=== PATIENT | female | born 1980 | race American Indian/Alaskan Native ===

== ENCOUNTER 2017-06-23 13:53 | Inpatient (IN) | payer MEDICAID, OTHER ==
[2017-06-23] MEDS ORDERED: CARDIZEM IV ONE (15:22)
[2017-06-23] MEDS ORDERED: CARDIZEM/D5W 100MG/100ML 100 MG/100 ML BAG IV ONE (15:22)
[2017-06-23] MEDS ORDERED: SUBLIMAZE IV ONE (15:23)
[2017-06-23] MEDS ORDERED: NACL 0.9% 1000 ML 1,000 ML IV ONE (15:25)
--- NOTE | 2017-06-23 15:27 | Emergency Department Report ---
HPI - General Chief Complaint: Chest Pain Time Seen by Provider: 06/23/17 15:22 - HPI HPI: The patient is 37-year-old female who presents for evaluation of chest pain. The patient reports chest pain for the past 2 days, constant since onset, moderate severity, currently 5/10 in severity, pounding in quality, and exacerbated with exertion. She also reports associated palpitations, severe, also constant since onset, and mild shortness of breath with exertion. The patient denies fever, trauma to the chest, cough, syncope, hemoptysis, unilateral leg swelling, oral contraceptive use, recent immobilization, history of DVT or PE, recent cancer. ED Past Medical Hx - Past Medical History Hx Psychiatric Treatment: Yes Hx Asthma: Yes Additional medical history: schizophrenia, bipolar, depression - Surgical History Additional Surgical History: Tubal ligation 2004. - Social History Smoking Status: Never Smoker Substance Use Type: None - Medications Home Medications: Home Medications Medication Instructions Recorded Confirmed Last Taken Type Mirtazapine [Remeron] 15 mg PO QHS 06/23/17 06/23/17 Unknown History Olanzapine [Zyprexa] 5 mg PO DAILY 06/23/17 06/23/17 Unknown History Temazepam [Restoril] 15 mg PO QHS PRN 06/23/17 06/23/17 Unknown History ED Review of Systems ROS: Stated complaint: SOB/CP Other details as noted in HPI Constitutional: denies: fever ENT: denies: throat or neck pain Respiratory: denies: cough, shortness of breath Cardiovascular: reports: chest pain and palpitations Endocrine: denies unexplained weight loss or gain Gastrointestinal: denies: abdominal pain, nausea Genitourinary: denies: dysuria Musculoskeletal: denies: leg swelling Skin: denies: rash Neurological: denies: headache Hematological/Lymphatic: denies: easy bleeding or easy bruising Psych: denies sadness or hopelessness Physical Exam - Physical Exam Vital Signs: Vital Signs 06/23/17 06/23/17 06/23/17 14:33 14:37 14:38 Temperature 98 F 98.6 F Pulse Rate 156 H 157 H Respiratory 20 20 20 Rate Blood Pressure 106/54 Blood Pressure 106/54 [Right] O2 Sat by Pulse 100 100 100 Oximetry Physical Exam: General: well-nourished, well-developed, no acute distress Head: Normocephalic, atraumatic Eyes: normal sclera ENT: Mucous membranes are pale and dry Neck: No neck stiffness, no cervical adenopathy Respiratory: Breath sounds equal bilaterally, no wheezing, rales, or rhonchi Cardio: S1 and S2 present, no murmurs, rubs, gallops, capillary refill is delayed Abdomen: Normoactive bowel sounds, soft abdomen, no rigidity, no guarding or rebound tenderness Musc: No pitting edema Skin: No rash Neuro: no facial drooping, normal speech Psych: Normal affect ED Course Vital Signs 06/23/17 06/23/17 06/23/17 14:33 14:37 14:38 Temperature 98 F 98.6 F Pulse Rate 156 H 157 H Respiratory 20 20 20 Rate Blood Pressure 106/54 Blood Pressure 106/54 [Right] O2 Sat by Pulse 100 100 100 Oximetry ED Medical Decision Making - Lab Data Result diagrams: 06/23/17 15:30 06/23/17 15:30 - Medical Decision Making The patient was seen and examined by myself. The patient is placed on a air sampling and monitoring and continuous pulse ox. On initial evaluation, the patient was found to be in no distress. Evaluation orders were placed. EKGs is irregularly irregular narrow complex QRS rhythm with no P waves, consistent with atrial fibrillation with RVR, as heart rate is in the 130s-150s. The patient is given IV fentanyl for pain and IV Cardizem for treatment of Atrial fibrillation. The patient started on a Cardizem drip. Multiple bedside assessments were performed to assess patient's responsiveness to antiarrhythmics infusion. The on-call hospitalist service was contacted. They agreed to admit the patient for further treatment and close monitoring. The ED admit order was placed. The patient was admitted in guarded condition. Critical Care Time: Yes Critical care time in (mins) excluding proc time.: 35 Critical care attestation.: Due to the critical nature of this patients presentation, which necessitated multiple bedside assessments, manipulation and supportive measures to prevent further life threatening deterioration, I would like to bill for a total of 35 minutes of critical care time. This was exclusive of any separately billable procedures. Critical Care Time: 35 min ED Disposition Clinical Impression: Atrial fibrillation with rapid ventricular response, Acute chest pain Disposition: OP ADMIT IP TO THIS HOSP Is pt being admited?: Yes Does the pt Need Aspirin: Yes Condition: Critical Instructions: Chest Pain (ED) Time of Disposition: 15:26
[2017-06-23 16:05] LABS: Hematocrit 37.8 % (30.3-42.9); Hemoglobin 12.3 gm/dl (10.1-14.3); Mean Corpuscular HGB Conc 33 % (30-34); Mean Corpuscular Hemoglobin 26 pg (28-32); Mean Corpuscular Volume 81 fl (79-97); Platelet Count 224 K/mm3 (140-440); Red Blood Count 4.68 M/mm3 (3.65-5.03); Red Cell Distribution Width 13.3 % (13.2-15.2)
[2017-06-23 16:14] LABS: INR 0.94 (0.87-1.13)
[2017-06-23 16:15] LABS: Partial Thromboplastin Time 28.1 Sec. (24.2-36.6)
[2017-06-23 16:23] LABS: BUN/Creatinine Ratio 25; Blood Urea Nitrogen 10 mg/dL (7-17); Calcium 9.4 mg/dL (8.4-10.2); Hemolysis Index 0
[2017-06-23 16:27] LABS: Creatine Kinase MB < 1.0 ng/mL (0.0-4.0)
[2017-06-23 16:28] LABS: Free T4 (Free Thyroxine) 3.28 ng/dL (0.76-1.46)
[2017-06-23 16:48] LABS: Basophils % (Manual) 0 % (0.0-1.8); Eosinophils % (Manual) 0 % (0.0-4.3); Total Cells Counted 100
[2017-06-23 16:49] LABS: Platelet Estimate Consistent w Auto; RBC Morphology Normal
--- NOTE | 2017-06-23 17:11 | History and Physical Report ---
History of Present Illness Chief complaint: My heart is beating fast History of present illness: 37 YO Female with Asthma, Schizophrenia, Bipolar, Depression presents to ED for evaluation. The patient states that she has experienced chest palpitations for the past 2 days as well as chest discomfort. Pt states that she feels like her heart is beating really hard. Pt now denies chest pain. Pt states that symptoms worsen with exertion or excitement. Pt states that palpitations are severe, constant since onset, and associated with mild shortness of breath with exertion. The patient denies fever, chills, CP, Palpitations, trauma to the chest, cough, syncope, hemoptysis, unilateral leg swelling, oral contraceptive use, recent immobilization, history of DVT or PE, recent cancer, prolonged travel, unintentional weight loss or night sweats. Pt seen and evaluated in ED and found to have Atrial Fib with RVR as well as eletated T4 and decreased TSH suspected secondary to thyrotoxicosis. Pt initiated on cardizem drip, and admitted to ICU. Past History Past Medical History: other (Asthma, schizophrenia, bipolar, depression) Past Surgical History: Other (tubal ligation) Social history: single. denies: smoking, alcohol abuse, prescription drug abuse Family history: no significant family history (reviewed) Medications and Allergies Allergies Allergy/AdvReac Type Severity Reaction Status Date / Time No Known Allergies Allergy Verified 05/14/14 23:07 Home Medications Medication Instructions Recorded Confirmed Last Taken Type Mirtazapine [Remeron] 15 mg PO QHS 06/23/17 06/23/17 Unknown History Olanzapine [Zyprexa] 5 mg PO DAILY 06/23/17 06/23/17 Unknown History Hydroxyzine HCl 25 mg PO BID 06/24/17 06/24/17 06/23/17 History Active Meds: Active Medications Diltiazem HCl (Cardizem/D5w 100mg/100ml) 100 mg in 100 mls @ 5 mls/hr IV TITR ONE; 5 MG/HR PRN Reason: Protocol Stop: 06/24/17 11:21 Review of Systems Constitutional: no weight loss, no weight gain, no fever, no chills Ears, nose, mouth and throat: no ear pain, no ear discharge, no tinnitis, no decreased hearing, no nose pain Breasts: no change in shape, no swelling, no mass Cardiovascular: palpitations, rapid/irregular heart beat, shortness of breath, no chest pain Respiratory: no cough, no cough with sputum, no excessive sputum, no hemoptysis , no shortness of breath Gastrointestinal: no nausea, no vomiting, no diarrhea Genitourinary Female: no dysmenorrhea, no pelvic pain, no flank pain, no menorrhagia, no dysuria Rectal: no pain, no incontinence, no bleeding Musculoskeletal: no neck stiffness, no neck pain, no shooting arm pain, no arm numbness/tingling Integumentary: no pruritis, no redness, no sores, no wounds Neurological: no head injury, no transient paralysis, no paralysis, no weakness , no parathesias, no numbness, no tingling Psychiatric: anxiety, no memory loss, no change in sleep habits, no sleep disturbances, no insomnia, no hypersomnia Endocrine: palpatations, no cold intolerance, no heat intolerance, no polyphagia , no excessive thirst, no polydipsia, no polyuria, no nocturia, no thyroid mass Hematologic/Lymphatic: no easy bruising, no easy bleeding Allergic/Immunologic: no urticaria, no allergic rhinitis, no wheezing Exam - Constitutional Vitals: Temp Pulse Resp BP Pulse Ox 98.6 F 163 H 20 101/65 100 06/23/17 14:37 06/23/17 16:05 06/23/17 14:38 06/23/17 16:05 06/23/17 14:38 General appearance: Present: mild distress - EENT Eyes: Present: PERRL ENT: hearing intact, clear oral mucosa - Neck Neck: Present: supple, normal ROM - Respiratory Respiratory effort: normal Respiratory: bilateral: CTA - Cardiovascular Rhythm: irregularly irregular Heart Sounds: Present: S1 & S2. Absent: rub, click - Extremities Extremities: pulses symmetrical, No edema Peripheral Pulses: within normal limits - Abdominal General gastrointestinal: Present: soft, non-tender, non-distended, normal bowel sounds Female genitourinary: Present: normal - Integumentary Integumentary: Present: clear, warm, dry - Musculoskeletal Musculoskeletal: gait normal, strength equal bilaterally - Psychiatric Psychiatric: appropriate mood/affect, intact judgment & insight - Neurologic Neurologic: CNII-XII intact, moves all extremities Results - Labs CBC & Chem 7: 06/23/17 15:30 06/23/17 15:30 Labs: Abnormal lab results 06/23/17 06/23/17 06/23/17 Range/Units 15:30 15:30 15:30 WBC 3.5 L (4.5-11.0) K/mm3 MCH 26 L (28-32) pg Seg Neuts % (Manual) 36.0 L (40.0-70.0) % Lymphocytes % (Manual) 56.0 H (13.4-35.0) % Monocytes % (Manual) 8.0 H (0.0-7.3) % Seg Neutrophils # Man 1.3 L (1.8-7.7) K/mm3 Creatinine 0.4 L (0.7-1.2) mg/dL Glucose 113 H (65-100) mg/dL TSH < 0.005 L (0.270-4.200) mlU/mL Free T4 3.28 H (0.76-1.46) ng/dL Assessment and Plan - Patient Problems (1) Atrial fibrillation with rapid ventricular response Current Visit: Yes Status: Acute Plan to address problem: Admit to ICU, Pt initiated on cardizem drip, titrate to achieve heart rate less than 100bpm, transition to oral cardizem, Echo, Thyroid panel, supportive care, The high probability of a clinically significant, sudden or life threatening deterioration of the [cardiac, endocrine] system(s) required my full and direct attention, intervention and personal management. The aggregate critical care time was [65] minutes. This time is in addition to time spent performing reported procedures but includes the following: [x] Data Review and interpretation [x] Patient assessment and monitoring of vital signs [x] Documentation [x] Medication orders and management (2) Thyrotoxicosis Current Visit: Yes Status: Acute Plan to address problem: Initiated methmazole therapy, thyroid scan to assess for thyroid nodule, supportive care, (3) Depression Current Visit: Yes Status: Chronic Qualifiers: Active/Remission status: in partial remission Plan to address problem: Continue current therpay, (4) Schizophrenia Current Visit: Yes Status: Chronic Plan to address problem: Stable, continue current therapy (5) DVT prophylaxis Current Visit: Yes Status: Acute
--- NOTE | 2017-06-23 17:15 | XRay Report ---
FINAL REPORT EXAM: XR CHEST 1V AP HISTORY: chest pain TECHNIQUE: Frontal portable chest x-ray Comparison: None FINDINGS: Normal heart size. Lungs are clear and well expanded without focal infiltrate or consolidation. Imaged axial skeleton is unremarkable. IMPRESSION: No acute cardiopulmonary disease.
[2017-06-23] MEDS ORDERED: MILK OF MAGNESIA PO PRN (17:16)
[2017-06-23] MEDS ORDERED: ALUM-MAG HYDROX-SIMETH 200-200-20MG/5ML PO PRN (17:16)
[2017-06-23] MEDS ORDERED: DULCOLAX PR PRN (17:16)
[2017-06-23] MEDS: TAPAZOLE PO SCH (19:15)
[2017-06-24] MEDS ORDERED: RESTORIL PO PRN (00:41)
[2017-06-24] MEDS ORDERED: REMERON ONE (01:07)
[2017-06-24] MEDS ORDERED: TYLENOL PO PRN (01:55)
[2017-06-24] MEDS: REMERON PO SCH ×2 (01:57→23:54)
[2017-06-24] MEDS ORDERED: TYLENOL ONE (02:07)
[2017-06-24] MEDS ORDERED: TAPAZOLE PO SCH ×2 (10:00→11:30)
--- NOTE | 2017-06-24 10:28 | Progress Note ---
Assessment and Plan Assessment and plan: 37-year-old well past medical history of asthma, schizoaffective disorder, who presents with chest palpitations and occasional chest discomforts and shortness of breath 2 days. Found to be in third stone with A. fib with RVR Thyroid storm Patient's needs to be treated with methimazole, steroids, beta derek and Lugol 's iodine -We will need outpatient endocrinology follow-up Atrial fibrillation with RVR and hypercoagulable states We'll discontinue Cardizem drip and transitioned to oral propranolol Schizoaffective disorder Resume all home psychiatric medications History of asthma, mild intermittent They will nothing to do Critical care time 33 minutes History Interval history: CVS: No chest pain, no orthopnea, no dyspnea on exertion, no pedal edema Admits to palpitations and occasional shortness of breath GI: No abdominal pain, no diarrhea, no vomiting, no constipation Respiratory: No shortness of breath, no wheezing, no coughing Hospitalist Physical - Physical exam Narrative exam: General.: Appears well, no distress, nontoxic HEENT: Moist mucous membranes, extraocular muscles intact, no lymphadenopathy Neck: supple Cardiac: S1-S2 heard, tachycardic Lungs: clear to auscultation bilaterally Abdomen: soft , nontender, nondistended, bowel sounds positive Extremities: no edema clubbing or cyanosis Skin: no rash or lesions Neurologic: no gross focal deficits Psych: appropriate behavior, appropriate mood, corporative, judgment intact - Constitutional Vitals: Temp Pulse Resp BP Pulse Ox 98.6 F 107 H 23 92/46 98 06/23/17 14:37 06/24/17 07:00 06/24/17 07:00 06/24/17 07:00 06/24/17 07:00 General appearance: Present: mild distress Results - Labs CBC & Chem 7: 06/23/17 15:30 06/23/17 15:30 Labs: Laboratory Last Values WBC 3.5 K/mm3 (4.5-11.0) L 06/23/17 15:30 RBC 4.68 M/mm3 (3.65-5.03) 06/23/17 15:30 Hgb 12.3 gm/dl (10.1-14.3) 06/23/17 15:30 Hct 37.8 % (30.3-42.9) 06/23/17 15:30 MCV 81 fl (79-97) 06/23/17 15:30 MCH 26 pg (28-32) L 06/23/17 15:30 MCHC 33 % (30-34) 06/23/17 15:30 RDW 13.3 % (13.2-15.2) 06/23/17 15:30 Plt Count 224 K/mm3 (140-440) 06/23/17 15:30 Lymph % (Auto) Refresh Technician 06/23/17 15:30 Add Manual Diff Complete 06/23/17 15:30 Total Counted 100 06/23/17 15:30 Seg Neuts % (Manual) 36.0 % (40.0-70.0) L 06/23/17 15:30 Band Neutrophils % 0 % 06/23/17 15:30 Lymphocytes % (Manual) 56.0 % (13.4-35.0) H 06/23/17 15:30 Reactive Lymphs % (Man) 0 % 06/23/17 15:30 Monocytes % (Manual) 8.0 % (0.0-7.3) H 06/23/17 15:30 Eosinophils % (Manual) 0 % (0.0-4.3) 06/23/17 15:30 Basophils % (Manual) 0 % (0.0-1.8) 06/23/17 15:30 Metamyelocytes % 0 % 06/23/17 15:30 Myelocytes % 0 % 06/23/17 15:30 Promyelocytes % 0 % 06/23/17 15:30 Blast Cells % 0 % 06/23/17 15:30 Nucleated RBC % Not Reportable 06/23/17 15:30 Seg Neutrophils # Man 1.3 K/mm3 (1.8-7.7) L 06/23/17 15:30 Band Neutrophils # 0.0 K/mm3 06/23/17 15:30 Lymphocytes # (Manual) 2.0 K/mm3 (1.2-5.4) 06/23/17 15:30 Abs React Lymphs (Man) 0.0 K/mm3 06/23/17 15:30 Monocytes # (Manual) 0.3 K/mm3 (0.0-0.8) 06/23/17 15:30 Eosinophils # (Manual) 0.0 K/mm3 (0.0-0.4) 06/23/17 15:30 Basophils # (Manual) 0.0 K/mm3 (0.0-0.1) 06/23/17 15:30 Metamyelocytes # 0.0 K/mm3 06/23/17 15:30 Myelocytes # 0.0 K/mm3 06/23/17 15:30 Promyelocytes # 0.0 K/mm3 06/23/17 15:30 Blast Cells # 0.0 K/mm3 06/23/17 15:30 WBC Morphology Not Reportable 06/23/17 15:30 Hypersegmented Neuts Not Reportable 06/23/17 15:30 Hyposegmented Neuts Not Reportable 06/23/17 15:30 Hypogranular Neuts Not Reportable 06/23/17 15:30 Smudge Cells Not Reportable 06/23/17 15:30 Toxic Granulation Not Reportable 06/23/17 15:30 Toxic Vacuolation Not Reportable 06/23/17 15:30 Dohle Bodies Not Reportable 06/23/17 15:30 Pelger-Huet Anomaly Not Reportable 06/23/17 15:30 Steve Rods Not Reportable 06/23/17 15:30 Platelet Estimate Consistent w auto 06/23/17 15:30 Clumped Platelets Not Reportable 06/23/17 15:30 Plt Clumps, EDTA Not Reportable 06/23/17 15:30 Large Platelets Not Reportable 06/23/17 15:30 Giant Platelets Not Reportable 06/23/17 15:30 Platelet Satelliting Not Reportable 06/23/17 15:30 Plt Morphology Comment Not Reportable 06/23/17 15:30 RBC Morphology Normal 06/23/17 15:30 Dimorphic RBCs Not Reportable 06/23/17 15:30 Polychromasia Not Reportable 06/23/17 15:30 Hypochromasia Not Reportable 06/23/17 15:30 Poikilocytosis Not Reportable 06/23/17 15:30 Anisocytosis Not Reportable 06/23/17 15:30 Microcytosis Not Reportable 06/23/17 15:30 Macrocytosis Not Reportable 06/23/17 15:30 Spherocytes Not Reportable 06/23/17 15:30 Pappenheimer Bodies Not Reportable 06/23/17 15:30 Sickle Cells Not Reportable 06/23/17 15:30 Target Cells Not Reportable 06/23/17 15:30 Tear Drop Cells Not Reportable 06/23/17 15:30 Ovalocytes Not Reportable 06/23/17 15:30 Helmet Cells Not Reportable 06/23/17 15:30 [place] Bodies Not Reportable 06/23/17 15:30 [place] Rings Not Reportable 06/23/17 15:30 [place] Cells Not Reportable 06/23/17 15:30 Bite Cells Not Reportable 06/23/17 15:30 Crenated Cell Not Reportable 06/23/17 15:30 Elliptocytes Not Reportable 06/23/17 15:30 Acanthocytes (Spur) Not Reportable 06/23/17 15:30 Rouleaux Not Reportable 06/23/17 15:30 Hemoglobin C Crystals Not Reportable 06/23/17 15:30 Schistocytes Not Reportable 06/23/17 15:30 Malaria parasites Not Reportable 06/23/17 15:30 Manjit Bodies Not Reportable 06/23/17 15:30 Hem Pathologist Commnt No 06/23/17 15:30 PT 13.0 Sec. (12.2-14.9) 06/23/17 15:30 INR 0.94 (0.87-1.13) 06/23/17 15:30 APTT 28.1 Sec. (24.2-36.6) 06/23/17 15:30 Sodium 141 mmol/L (137-145) 06/23/17 15:30 Potassium 4.9 mmol/L (3.6-5.0) 06/23/17 15:30 Chloride 104.6 mmol/L (98-107) 06/23/17 15:30 Carbon Dioxide 25 mmol/L (22-30) 06/23/17 15:30 Anion Gap 16 mmol/L 06/23/17 15:30 BUN 10 mg/dL (7-17) 06/23/17 15:30 Creatinine 0.4 mg/dL (0.7-1.2) L 06/23/17 15:30 Estimated GFR > 60 ml/min 06/23/17 15:30 BUN/Creatinine Ratio 25 % 06/23/17 15:30 Glucose 113 mg/dL (65-100) H 06/23/17 15:30 Calcium 9.4 mg/dL (8.4-10.2) 06/23/17 15:30 Magnesium 1.70 mg/dL (1.7-2.3) 06/23/17 15:30 Total Creatine Kinase 75 units/L (30-135) 06/23/17 15:30 CK-MB (CK-2) < 1.0 ng/mL (0.0-4.0) 06/23/17 15:30 CK-MB (CK-2) Rel Index 1.3 (0-4) 06/23/17 15:30 Troponin T < 0.010 ng/mL (0.00-0.029) 06/23/17 15:30 TSH < 0.005 mlU/mL (0.270-4.200) L 06/23/17 15:30 Free T4 3.26 ng/dL (0.76-1.46) H 06/23/17 17:00 HCG, Qual Negative (Negative) 06/23/17 15:30 - Imaging and Cardiology Chest x-ray: image reviewed (no pneumonia)
[2017-06-24] MEDS: TAPAZOLE PO SCH ×3 (10:53→23:55)
[2017-06-24] MEDS ORDERED: INDERAL PO SCH (11:00)
[2017-06-24] MEDS: LUGOL'S SOLUTION 5% PO SCH ×2 (16:00→23:56)
[2017-06-24] MEDS: INDERAL PO SCH ×2 (19:18→23:54)
[2017-06-25] MEDS: LUGOL'S SOLUTION 5% PO SCH ×3 (05:17→21:43)
[2017-06-25] MEDS: INDERAL PO SCH ×4 (05:17→23:13)
[2017-06-25] MEDS: TAPAZOLE PO SCH ×4 (05:25→23:13)
--- NOTE | 2017-06-25 10:43 | Consultation ---
History of Present Illness Consult date: 06/25/17 Consult reason: atrial fibrillation History of present illness: This is a 37 year old obese -[place] female brought a with symptoms of palpitations and shortness of breath. Initial EKG revealed atrial fibrillation with rapid ventricular response. Patient's thyroid profile and labs consistent with hyperthyroidism. At the time of my evaluation patient's rhythm is sinus. Past History Past Medical History: other (Asthma, schizophrenia, bipolar, depression) Past Surgical History: Other (tubal ligation) Social history: single. denies: smoking, alcohol abuse, prescription drug abuse Family history: no significant family history (reviewed) Medications and Allergies Allergies Allergy/AdvReac Type Severity Reaction Status Date / Time No Known Allergies Allergy Verified 05/14/14 23:07 Home Medications Medication Instructions Recorded Confirmed Last Taken Type Mirtazapine [Remeron] 15 mg PO QHS 06/23/17 06/23/17 Unknown History Olanzapine [Zyprexa] 5 mg PO DAILY 06/23/17 06/23/17 Unknown History Hydroxyzine HCl 25 mg PO BID 06/24/17 06/24/17 06/23/17 History Active Meds: Active Medications Acetaminophen (Tylenol) 650 mg PO Q4H PRN PRN Reason: Pain Last Admin: 06/24/17 02:21 Dose: 650 mg Al Hydrox/Mg Hydrox/Simethicone (Alum-Mag Hydrox-Simeth [id number]/5ml) 30 ml PO Q4H PRN PRN Reason: Indigestion Bisacodyl (Dulcolax) 10 mg MD QDAY PRN PRN Reason: constipation unrelieved by MOM Hydrocortisone Sodium Succinate (Solu-Cortef) 100 mg IV Q8HR [facility] [place] Last Admin: 06/25/17 05:16 Dose: 100 mg Hydroxyzine HCl (Atarax) 25 mg PO BID PRN PRN Reason: Itching Iodine/Potassium Iodide (Lugol's Solution 5%) 1 ml PO Q8HR [facility] [place] Last Admin: 06/25/17 05:17 Dose: 1 ml Magnesium Hydroxide (Milk Of Magnesia) 30 ml PO Q4H PRN PRN Reason: Constipation Methimazole (Tapazole) 20 mg PO Q6HR [facility] [place] Last Admin: 06/25/17 05:25 Dose: 20 mg Mirtazapine (Remeron) 15 mg PO QHS [facility] [place] Last Admin: 06/24/17 23:54 Dose: 15 mg Olanzapine (Zyprexa) 5 mg PO BID [facility] [place] Last Admin: 06/24/17 23:54 Dose: 5 mg Propranolol HCl (Inderal) 20 mg PO Q6HR [facility] [place] Last Admin: 06/25/17 05:17 Dose: 20 mg Review of Systems Constitutional: no weight loss, no weight gain, no fever, no chills, no anorexia , no fatigue, no weakness, no malaise Ears, nose, mouth and throat: no ear pain, no ear discharge, no bleeding gums, no dental pain Cardiovascular: palpitations, shortness of breath, no chest pain, no orthopnea Respiratory: no cough, no cough with sputum, no congestion, no wheezing Gastrointestinal: no abdominal pain, no nausea, no vomiting, no melena, no hematochezia, no heartburn Genitourinary Female: no dyspareunia, no pelvic pain, no flank pain, no dysuria , no urinary frequency Rectal: no pain, no incontinence, no bleeding Musculoskeletal: no neck stiffness, no neck pain, no morning stiffness, no muscle weakness Integumentary: no deferred, no rash, no pruritis Neurological: no head injury, no paralysis, no weakness Physical Examination Vital Signs Pulse Ox 100 06/23/17 14:27 General appearance: obese HEENT: Positive: PERRL, Normocephaly, Mucus Membranes Moist Neck: Positive: neck supple, trachea midline Cardiac: Positive: Regular Rate, S1/S2, PMI, Laterally Displaced Lungs: Positive: clear to auscultation, No Wheeze, Rales, Rhonchi Neuro: Positive: Grossly Intact Abdomen: Positive: Unremarkable, Soft Extremities: Absent: edema Results 06/23/17 15:30 06/23/17 15:30 EKG interpretations - EKG Sinus rhythms and dysrhythmias: sinus tachycardia Assessment and Plan 1. Paroxysmal atrial fibrillation currently in sinus rhythm 2. Hyperthyriodism 3. Obesity Plan. Endocrine consult. Start Inderal at 60 mg 3 times a day. Check echocardiogram.
--- NOTE | 2017-06-25 11:39 | Progress Note ---
Assessment and Plan Assessment and plan: 37-year-old well past medical history of asthma, schizoaffective disorder, who presents with chest palpitations and occasional chest discomforts and shortness of breath 2 days. Found to be in third stone with A. fib with RVR Thyroid storm Patient's needs to be treated with methimazole, steroids, beta derek and Lugol 's iodine -We will need outpatient endocrinology follow-up Paroxysmal Atrial fibrillation with RVR and hypercoagulable states continue oral propranolol echo unremarkable, preserved EF no need for anticoagulation unless PAF is to recur, appears to have been due to hypethroid state Schizoaffective disorder Resume all home psychiatric medications History of asthma, mild intermittent nothing to do Critical care time 33 minutes History Interval history: CVS: No chest pain, no orthopnea, no dyspnea on exertion, no pedal edema Admits to palpitations and occasional shortness of breath GI: No abdominal pain, no diarrhea, no vomiting, no constipation Respiratory: No shortness of breath, no wheezing, no coughing Hospitalist Physical - Physical exam Narrative exam: General.: Appears well, no distress, nontoxic HEENT: Moist mucous membranes, extraocular muscles intact, no lymphadenopathy Neck: supple Cardiac: S1-S2 heard, tachycardic Lungs: clear to auscultation bilaterally Abdomen: soft , nontender, nondistended, bowel sounds positive Extremities: no edema clubbing or cyanosis Skin: no rash or lesions Neurologic: no gross focal deficits Psych: appropriate behavior, appropriate mood, corporative, judgment intact - Constitutional Vitals: Temp Pulse Resp BP Pulse Ox 98.5 F 105 H 20 123/60 99 06/25/17 07:41 06/25/17 10:00 06/25/17 10:00 06/25/17 07:41 06/25/17 10:00 General appearance: Present: obese Results - Labs CBC & Chem 7: 06/23/17 15:30 06/23/17 15:30 Labs: Laboratory Last Values WBC 3.5 K/mm3 (4.5-11.0) L 06/23/17 15:30 RBC 4.68 M/mm3 (3.65-5.03) 06/23/17 15:30 Hgb 12.3 gm/dl (10.1-14.3) 06/23/17 15:30 Hct 37.8 % (30.3-42.9) 06/23/17 15:30 MCV 81 fl (79-97) 06/23/17 15:30 MCH 26 pg (28-32) L 06/23/17 15:30 MCHC 33 % (30-34) 06/23/17 15:30 RDW 13.3 % (13.2-15.2) 06/23/17 15:30 Plt Count 224 K/mm3 (140-440) 06/23/17 15:30 Lymph % (Auto) [employer] 06/23/17 15:30 Add Manual Diff Complete 06/23/17 15:30 Total Counted 100 06/23/17 15:30 Seg Neuts % (Manual) 36.0 % (40.0-70.0) L 06/23/17 15:30 Band Neutrophils % 0 % 06/23/17 15:30 Lymphocytes % (Manual) 56.0 % (13.4-35.0) H 06/23/17 15:30 Reactive Lymphs % (Man) 0 % 06/23/17 15:30 Monocytes % (Manual) 8.0 % (0.0-7.3) H 06/23/17 15:30 Eosinophils % (Manual) 0 % (0.0-4.3) 06/23/17 15:30 Basophils % (Manual) 0 % (0.0-1.8) 06/23/17 15:30 Metamyelocytes % 0 % 06/23/17 15:30 Myelocytes % 0 % 06/23/17 15:30 Promyelocytes % 0 % 06/23/17 15:30 Blast Cells % 0 % 06/23/17 15:30 Nucleated RBC % Not Reportable 06/23/17 15:30 Seg Neutrophils # Man 1.3 K/mm3 (1.8-7.7) L 06/23/17 15:30 Band Neutrophils # 0.0 K/mm3 06/23/17 15:30 Lymphocytes # (Manual) 2.0 K/mm3 (1.2-5.4) 06/23/17 15:30 Abs React Lymphs (Man) 0.0 K/mm3 06/23/17 15:30 Monocytes # (Manual) 0.3 K/mm3 (0.0-0.8) 06/23/17 15:30 Eosinophils # (Manual) 0.0 K/mm3 (0.0-0.4) 06/23/17 15:30 Basophils # (Manual) 0.0 K/mm3 (0.0-0.1) 06/23/17 15:30 Metamyelocytes # 0.0 K/mm3 06/23/17 15:30 Myelocytes # 0.0 K/mm3 06/23/17 15:30 Promyelocytes # 0.0 K/mm3 06/23/17 15:30 Blast Cells # 0.0 K/mm3 06/23/17 15:30 WBC Morphology Not Reportable 06/23/17 15:30 Hypersegmented Neuts Not Reportable 06/23/17 15:30 Hyposegmented Neuts Not Reportable 06/23/17 15:30 Hypogranular Neuts Not Reportable 06/23/17 15:30 Smudge Cells Not Reportable 06/23/17 15:30 Toxic Granulation Not Reportable 06/23/17 15:30 Toxic Vacuolation Not Reportable 06/23/17 15:30 Dohle Bodies Not Reportable 06/23/17 15:30 Pelger-Huet Anomaly Not Reportable 06/23/17 15:30 Steve Rods Not Reportable 06/23/17 15:30 Platelet Estimate Consistent w auto 06/23/17 15:30 Clumped Platelets Not Reportable 06/23/17 15:30 Plt Clumps, EDTA Not Reportable 06/23/17 15:30 Large Platelets Not Reportable 06/23/17 15:30 Giant Platelets Not Reportable 06/23/17 15:30 Platelet Satelliting Not Reportable 06/23/17 15:30 Plt Morphology Comment Not Reportable 06/23/17 15:30 RBC Morphology Normal 06/23/17 15:30 Dimorphic RBCs Not Reportable 06/23/17 15:30 Polychromasia Not Reportable 06/23/17 15:30 Hypochromasia Not Reportable 06/23/17 15:30 Poikilocytosis Not Reportable 06/23/17 15:30 Anisocytosis Not Reportable 06/23/17 15:30 Microcytosis Not Reportable 06/23/17 15:30 Macrocytosis Not Reportable 06/23/17 15:30 Spherocytes Not Reportable 06/23/17 15:30 Pappenheimer Bodies Not Reportable 06/23/17 15:30 Sickle Cells Not Reportable 06/23/17 15:30 Target Cells Not Reportable 06/23/17 15:30 Tear Drop Cells Not Reportable 06/23/17 15:30 Ovalocytes Not Reportable 06/23/17 15:30 Helmet Cells Not Reportable 06/23/17 15:30 [place] Bodies Not Reportable 06/23/17 15:30 [place] Rings Not Reportable 06/23/17 15:30 [place] Cells Not Reportable 06/23/17 15:30 Bite Cells Not Reportable 06/23/17 15:30 Crenated Cell Not Reportable 06/23/17 15:30 Elliptocytes Not Reportable 06/23/17 15:30 Acanthocytes (Spur) Not Reportable 06/23/17 15:30 Rouleaux Not Reportable 06/23/17 15:30 Hemoglobin C Crystals Not Reportable 06/23/17 15:30 Schistocytes Not Reportable 06/23/17 15:30 Malaria parasites Not Reportable 06/23/17 15:30 Manjit Bodies Not Reportable 06/23/17 15:30 Hem Pathologist Commnt No 06/23/17 15:30 PT 13.0 Sec. (12.2-14.9) 06/23/17 15:30 INR 0.94 (0.87-1.13) 06/23/17 15:30 APTT 28.1 Sec. (24.2-36.6) 06/23/17 15:30 Sodium 141 mmol/L (137-145) 06/23/17 15:30 Potassium 4.9 mmol/L (3.6-5.0) 06/23/17 15:30 Chloride 104.6 mmol/L (98-107) 06/23/17 15:30 Carbon Dioxide 25 mmol/L (22-30) 06/23/17 15:30 Anion Gap 16 mmol/L 06/23/17 15:30 BUN 10 mg/dL (7-17) 06/23/17 15:30 Creatinine 0.4 mg/dL (0.7-1.2) L 06/23/17 15:30 Estimated GFR > 60 ml/min 06/23/17 15:30 BUN/Creatinine Ratio 25 % 06/23/17 15:30 Glucose 113 mg/dL (65-100) H 06/23/17 15:30 Calcium 9.4 mg/dL (8.4-10.2) 06/23/17 15:30 Magnesium 1.70 mg/dL (1.7-2.3) 06/23/17 15:30 Total Creatine Kinase 75 units/L (30-135) 06/23/17 15:30 CK-MB (CK-2) < 1.0 ng/mL (0.0-4.0) 06/23/17 15:30 CK-MB (CK-2) Rel Index 1.3 (0-4) 06/23/17 15:30 Troponin T < 0.010 ng/mL (0.00-0.029) 06/23/17 15:30 TSH < 0.005 mlU/mL (0.270-4.200) L 06/23/17 15:30 Free T4 3.26 ng/dL (0.76-1.46) H 06/23/17 17:00 HCG, Qual Negative (Negative) 06/23/17 15:30
[2017-06-25] MEDS: ATARAX PO PRN (21:44)
[2017-06-25] MEDS: REMERON PO SCH (21:44)
[2017-06-26] MEDS: LUGOL'S SOLUTION 5% PO SCH (05:01)
[2017-06-26] MEDS: INDERAL PO SCH ×2 (05:02→11:43)
[2017-06-26] MEDS: TAPAZOLE PO SCH ×2 (05:02→11:42)
--- NOTE | 2017-06-26 09:53 | Progress Note ---
Assessment and Plan 1. Paroxysmal atrial fibrillation currently in sinus rhythm 2. Hyperthyriodism 3. Obesity Plan. Endocrine consult. Start Inderal at 60 mg 3 times a day. Check echocardiogram. Subjective Date of service: 06/26/17 Interval history: No cardiac symptoms. Objective Vital Signs Temp Pulse Pulse Resp BP BP Pulse Ox 06/26/17 08:56 98.3 F 95 H 20 143/83 99 06/26/17 04:19 98.3 F 97 H 18 112/70 99 06/25/17 23:49 99.0 F 105 H 18 129/77 99 06/25/17 21:00 106 H 18 06/25/17 20:25 98.8 F 112 H 18 123/65 99 06/25/17 18:07 107 H 125/72 06/25/17 17:12 98.2 F 107 H 20 125/72 98 06/25/17 16:31 98.2 F 108 H 18 125/72 99 06/25/17 12:29 112 H 121/63 06/25/17 11:42 98.4 F 112 H 20 121/63 100 06/25/17 10:00 114 H 105 H 20 99 - Physical Examination General: Other (obese) HEENT: Positive: PERRL, Normocephaly, Mucus Membranes Moist Neck: Positive: neck supple, trachea midline. Negative: JVD/HJR Cardiac: Positive: Regular Rate, S1/S2 Lungs: Positive: clear to auscultation, No Wheeze, Rales, Rhonchi Neuro: Positive: Grossly Intact Abdomen: Positive: Unremarkable, Soft Extremities: Absent: edema - Telemetry EKG Rhythm: Sinus Rhythm - EKG Sinus rhythms and dysrhythmias: sinus tachycardia
--- NOTE | 2017-06-26 10:21 | Discharge Summary ---
Providers - Providers Date of Admission: 06/23/17 17:16 Attending physician: COURTNEY HOUSER MD 06/24/17 16:01 Consult to Physician [CONS] Routine Consulting Provider: TILA GARCIA Reason For Exam: afib with RVR Place consult to:: CARDIO Notified:: Y Was contact made?: Yes If yes, spoke with:: OFFICE PAMELA Time called:: 16:40 Primary care physician: SANTHOSH CHIANG Hospitalization Condition: Critical Hospital course: 37-year-old well past medical history of asthma, schizoaffective disorder, who presents with chest palpitations and occasional chest discomforts and shortness of breath 2 days. Found to be in thyroid storm with A. fib with RVR. She was treated with Cardizem drip, after which she went back into sinus rhythm. She received methimazole, steroids, beta derek and Lugol's iodine for thyroid storm. She clinically improved and is being discharged on beta derek and methimazole. The patient will need outpatient endocrine follow-up for thyroid scan and definitive treatment. She received cardiology consultation while she was in hospital she also had an echocardiogram that was unremarkable. Chest continued on the rest of her psychiatric medications while in hospital. Discharge diagnoses Hypothyroidism with thyroid storm Paroxysmal atrial fibrillation with RVR and hypercoagulable state Schizoaffective disorder Mild intermittent asthma Disposition: DC-01 TO HOME OR SELFCARE Time spent for discharge: 33 minutes Core Measure Documentation - Palliative Care Palliative Care/ Comfort Measures: Not Applicable - Core Measures Any of the following diagnoses?: none Exam - Constitutional Vitals: Temp Pulse Resp BP Pulse Ox 98.3 F 95 H 20 143/83 99 06/26/17 08:56 06/26/17 08:56 06/26/17 08:56 06/26/17 08:56 06/26/17 08:56 General appearance: Present: no acute distress, well-nourished - EENT Eyes: Present: PERRL ENT: hearing intact, clear oral mucosa - Neck Neck: Present: supple, normal ROM - Respiratory Respiratory effort: normal Respiratory: bilateral: CTA - Cardiovascular Heart Sounds: Present: S1 & S2. Absent: rub, click - Extremities Extremities: pulses symmetrical, No edema Peripheral Pulses: within normal limits - Abdominal General gastrointestinal: Present: soft, non-tender, non-distended, normal bowel sounds Female genitourinary: Present: normal - Integumentary Integumentary: Present: clear, warm, dry - Musculoskeletal Musculoskeletal: gait normal, strength equal bilaterally - Psychiatric Psychiatric: appropriate mood/affect, intact judgment & insight - Neurologic Neurologic: CNII-XII intact, moves all extremities Plan Follow up with: PRIMARY CARE, [Referring] - 3-5 Days Prescriptions: Mirtazapine [Remeron] 15 mg PO QHS #30 tablet Hydroxyzine HCl 25 mg PO BID #60 tablet Methimazole [Tapazole] 20 mg PO Q8H #180 tablet Olanzapine [Zyprexa] 5 mg PO DAILY #30 tablet Propranolol [Inderal] 40 mg PO Q8H #90 tablet
[2017-06-26 11:42] VITALS: BP 106/69
[2017-06-26] MEDS: ATARAX PO PRN (11:46)
== END 2017-06-26 13:10 | disposition home or self-care (01) | DRG 645 ==
LOC: ED 13:53 → CC1 17:16 → 4A 06-24 18:32
PROVIDERS: ADMIT Internal Medicine; ATTEND Internal Medicine
DX: E05.91 Thyrotoxicosis, unspecified with thyrotoxic crisis or storm (principal); F20.9 Schizophrenia, unspecified; J45.909 Unspecified asthma, uncomplicated; F31.9 Bipolar disorder, unspecified; Z98.51 Tubal ligation status; E66.9 Obesity, unspecified; Z68.34 Body mass index [BMI] 34.0-34.9, adult; I48.0 Paroxysmal atrial fibrillation
CPT/HCPCS: 36415; 71045; 80048; 82550; 82553; 83735; 84439; 84443; 84484; 84703; 85007; 85025; 85610; 85730; 93005; 93010; 93306; 96361; 96374; 96375; 99291; J1720; J3010; J7030

== ENCOUNTER 2017-11-22 21:12 | Emergency (ER) | payer SELFPAY | END 2017-11-22 22:27 | disposition left against medical advice (07) | LOC: ED 21:12 | DX: Z53.21 Procedure and treatment not carried out due to patient leaving prior to being seen by health care provider (principal) ==

== ENCOUNTER 2017-11-24 13:31 | Emergency (ER) | payer SELFPAY ==
[2017-11-24 14:26] VITALS: BP 129/80
[2017-11-24] MEDS ORDERED: MOTRIN PO ONE (15:28)
[2017-11-24] MEDS ORDERED: XYLOCAINE 1% 20 mL INFILTRATI ONE (15:28)
--- NOTE | 2017-11-24 15:29 | Emergency Department Report ---
Blank Doc - Documentation Documentation: Patient is a 37-year-old black female who states that [facility] being [facility] for approximately a year and now she has what appears to be folliculitis. Patient has small area of swelling to the left periauricular area and on the right posterior scalp at the base of the neck. One at the base of the neck is quite large and fluctuated. Patient also has had a cough cold congestion for approximately a week. Patient be moved to a treatment room for I&D her cough and cold and congestion will be treated.
[2017-11-24] MEDS ORDERED: XYLOCAINE 1% MPF 5 mL ONE (16:35)
--- NOTE | 2017-11-24 17:08 | Emergency Department Report ---
Abscess Boil HPI - HPI Chief Complaint: Skin/Abscess/Foreign Body Stated Complaint: SPIDER BITE AND CHEST PAIN Time Seen by Provider: 11/24/17 15:23 Duration: >1 Week Location: Head Severity: Moderate History: Yes Pain, Yes Purulent Drainage, Yes Previous History, No Fever, No Numbness, No Foreign Body, No Insect Bite HPI: Patient is a 37-year-old black female who states that she recently went to the [facility] after being incarcerated for approximately a year and now she has what appears to be folliculitis. Patient has small area of swelling to the left periauricular area and on the right posterior scalp at the base of the neck. One at the base of the neck is quite large and fluctuated. Patient also has had a cough cold congestion for approximately a week. Patient be moved to a treatment room for I&D her cough and cold and congestion will be treated. Home Medications: Previous Rx's Medication Instructions Recorded Last Taken Type Hydroxyzine HCl 25 mg PO BID #60 tablet 06/26/17 Unknown Rx Methimazole [Tapazole] 20 mg PO Q8H #180 tablet 06/26/17 Unknown Rx Mirtazapine [Remeron] 15 mg PO QHS #30 tablet 06/26/17 Unknown Rx Olanzapine [Zyprexa] 5 mg PO DAILY #30 tablet 06/26/17 Unknown Rx Propranolol [Inderal] 40 mg PO Q8H #90 tablet 06/26/17 Unknown Rx Ibuprofen 800 mg PO TID PRN #30 tablet 11/24/17 Unknown Rx Sulfamethoxazole/Trimethoprim 1 each PO BID #20 tablet 11/24/17 Unknown Rx [Bactrim DS TAB] Allergies/Adverse Reactions: Allergies Allergy/AdvReac Type Severity Reaction Status Date / Time No Known Allergies Allergy Verified 05/14/14 23:07 ED Review of Systems ROS: Stated complaint: SPIDER BITE AND CHEST PAIN Other details as noted in HPI Constitutional: denies: chills, fever Eyes: denies: eye pain, eye discharge, vision change ENT: denies: ear pain, throat pain Respiratory: denies: cough, shortness of breath, wheezing Cardiovascular: denies: chest pain, palpitations Endocrine: no symptoms reported Gastrointestinal: denies: abdominal pain, nausea, diarrhea Genitourinary: denies: urgency, dysuria, discharge Musculoskeletal: denies: back pain, joint swelling, arthralgia Skin: other (abscess occipital scalp ). denies: rash, lesions Neurological: denies: headache, weakness, paresthesias Psychiatric: denies: anxiety, depression Hematological/Lymphatic: denies: easy bleeding, easy bruising ED Past Medical Hx - Past Medical History Previous Medical History?: Yes Hx Psychiatric Treatment: Yes Hx Asthma: Yes Additional medical history: schizophrenia, bipolar, depression. hyperthyroidism - Surgical History Past Surgical History?: Yes Additional Surgical History: Tubal ligation 2004. - Social History Smoking Status: Never Smoker Substance Use Type: None - Medications Home Medications: Home Medications Medication Instructions Recorded Confirmed Last Taken Type Hydroxyzine HCl 25 mg PO BID #60 tablet 06/26/17 Unknown Rx Methimazole [Tapazole] 20 mg PO Q8H #180 tablet 06/26/17 Unknown Rx Mirtazapine [Remeron] 15 mg PO QHS #30 tablet 06/26/17 Unknown Rx Olanzapine [Zyprexa] 5 mg PO DAILY #30 tablet 06/26/17 Unknown Rx Propranolol [Inderal] 40 mg PO Q8H #90 tablet 06/26/17 Unknown Rx Ibuprofen 800 mg PO TID PRN #30 tablet 11/24/17 Unknown Rx Sulfamethoxazole/Trimethoprim 1 each PO BID #20 tablet 11/24/17 Unknown Rx [Bactrim DS TAB] ED Abscess Boil Physical Exam - Exam General: Vital signs noted. No distress. Alert and acting appropriately. Front/Back of Body, Lg (Color): 1 - right occipital scalp Size: 2 cm Exam: Yes Tenderness, Yes Fluctuance, Yes Surrounding Cellulites/Erythema, Yes Normal Neurologic Exam, Yes Normal Circulation, No Lymphangitis, No Crepitation , No Heart Murmur I & D Note - I & D Note I & D Note: right occipital abscess, 1x2 cm fluctuant, mild erythema, warm to touch, wound cleaned with betadine solution, anethes with 1% lidocaine plain, incision with 11 blade, x 1 straight stab, blunt disection with forcep moderate purulent drainage wound irrigated with sterile saline, 30 cc, all bleeding controlled steril dressing applied, pt given wound care instructions, pt tolerate procedure with minimal distress. ED Course Vital Signs 11/24/17 11/24/17 14:23 15:17 Temperature 99.2 F Pulse Rate 95 H Respiratory 16 18 Rate Blood Pressure 129/80 O2 Sat by Pulse 99 99 Oximetry Critical care attestation.: If time is entered above; I have spent that time in minutes in the direct care of this critically ill patient, excluding procedure time. ED Medical Decision Making - Medical Decision Making Patient's was I&D abscess right occipital scalp tolerates same in minimal distress all bleeding is controlled see procedure note sterile dressing applied patient given wound care instructions for laceration and agreement was signed With same with DC'd home in stable condition at this time a prescription for Bactrim and I were both when necessary pain patient will [facility] 2[facility]3 days for wound check ED Disposition Clinical Impression: Abscess, scalp Disposition: DC-01 TO HOME OR SELFCARE Is pt being admited?: No Does the pt Need Aspirin: No Condition: Good Instructions: Abscess (ED) Prescriptions: Ibuprofen 800 mg PO TID PRN #30 tablet PRN Reason: pain fever Sulfamethoxazole/Trimethoprim [Bactrim DS TAB] 1 each PO BID #20 tablet Referrals: [facility] [Outside] - 3-5 Days Forms: Work/School Release Form(ED) Time of Disposition: 17:12
== END 2017-11-24 17:23 | disposition home or self-care (01) ==
LOC: ED 13:31
DX: L02.811 Cutaneous abscess of head [any part, except face] (principal); J45.909 Unspecified asthma, uncomplicated
CPT/HCPCS: 93005; 93010; 99282

== ENCOUNTER 2018-11-17 12:20 | Emergency (ER) | payer OTHER ==
[2018-11-17 12:30] VITALS: BP 143/80
--- NOTE | 2018-11-17 12:30 | Event Note ---
ED Screening Note ED Screening Note: SCH[facility]O MEDS NOT WORKING NO HI NO SI AUD HALLUCINATION STAYS IN HOTEL ON PERIOD NOW PMH SCHIZO THYROID DISEASE - OFF MEDS This initial assessment/diagnostic orders/clinical plan/treatment(s) is/are subject to change based on patients health status, clinical progression and re- assessment by fellow clinical providers in the ED. Further treatment and workup at subsequent clinical providers discretion. Patient/guardian urged not to elope from the ED as their condition may be serious if not clinically assessed and managed. Initial orders include: MEDICAL CLEARANCE
[2018-11-17 12:57] LABS: Basophils # (Auto) 0.1 K/mm3 (0.0-0.1); Basophils % (Auto) 0.9 % (0.0-1.8); Eosinophils % (Auto) 0.4 % (0.0-4.3); Hematocrit 37.1 % (30.3-42.9); Hemoglobin 12.2 gm/dl (10.1-14.3); Lymphocytes # (Auto) 3.4 K/mm3 (1.2-5.4); Lymphocytes % (Auto) 43.3 % (13.4-35.0); Mean Corpuscular HGB Conc 33 % (30-34); Mean Corpuscular Volume 84 fl (79-97); Monocytes # (Auto) 0.3 K/mm3 (0.0-0.8); Monocytes % (Auto) 4.2 % (0.0-7.3); Platelet Count 292 K/mm3 (140-440); Red Blood Count 4.43 M/mm3 (3.65-5.03); Red Cell Distribution Width 16.5 % (13.2-15.2)
[2018-11-17 13:17] LABS: Alanine Aminotransferase 10 units/L (7-56); BUN/Creatinine Ratio 6; Blood Urea Nitrogen 5 mg/dL (7-17); Calcium 9.1 mg/dL (8.4-10.2); Hemolysis Index 1
--- NOTE | 2018-11-17 13:24 | Emergency Department Report ---
HPI - General Chief Complaint: Psych Time Seen by Provider: 11/17/18 12:28 - HPI HPI: 38 year-old female presents to the emergency department for a mental health evaluation. She has a history of schizophrenia, bipolar disorder and depression and says that she has been off of her trazodone and Zyprexa for the past 2 weeks. She usually follows up with [facility] for psychiatry. She is having both auditory and visual hallucinations. She says that she sees "people and they are trying to attack me." She denies any suicidal or homicidal ideations. She has a past medical history of hyperthyroidism and asthma. She complains of a cough. She seems very focused on the fact that she needs to get her thyroid taken out but that no one will do for her because she does not have insurance. She is a tobacco smoker but denies any illicit drug use. ED Past Medical Hx - Past Medical History Previous Medical History?: Yes Hx Psychiatric Treatment: Yes Hx Asthma: Yes Additional medical history: schizophrenia, bipolar, depression. hyperthyroidism - Surgical History Past Surgical History?: Yes Additional Surgical History: Tubal ligation 2004. - Social History Smoking Status: Current Every Day Smoker - Medications Home Medications: Home Medications Medication Instructions Recorded Confirmed Last Taken Type Cephalexin [Keflex] 500 mg PO Q8H 7 Days #21 capsule 06/02/18 Unknown Rx Fluconazole [Diflucan TAB] 150 mg PO ONCE 2 Days #2 tablet 06/02/18 Unknown Rx Ibuprofen [Motrin] 800 mg PO Q8HR PRN #12 tablet 06/02/18 Unknown Rx Nitrofurantoin [place]/M-Cryst 100 mg PO Q12HR #14 capsule 11/17/18 Unknown Rx [Macrobid CAP] ED Review of Systems ROS: Stated complaint: ANXIETY/DEPRESSION Other details as noted in HPI Comment: All other systems reviewed and negative Constitutional: denies: chills, fever Eyes: denies: eye pain, vision change ENT: denies: ear pain, throat pain Respiratory: cough. denies: shortness of breath Cardiovascular: denies: chest pain, edema Gastrointestinal: denies: abdominal pain, vomiting Genitourinary: denies: dysuria, discharge Musculoskeletal: denies: back pain, arthralgia Skin: denies: rash, lesions Neurological: denies: headache, weakness Psychiatric: auditory hallucinations, visual hallucinations. denies: homicidal thoughts, suicidal thoughts Physical Exam - Physical Exam Vital Signs: Vital Signs 11/17/18 12:28 Temperature 98.2 F Pulse Rate 89 Respiratory 20 Rate Blood Pressure 143/80 [Right] O2 Sat by Pulse 100 Oximetry Physical Exam: GENERAL: The patient is well-developed well-nourished. HENT: Normocephalic. Atraumatic. Patient has moist mucous membranes. EYES: Extraocular motions are intact. NECK: Supple. Trachea is midline. CHEST/LUNGS: Clear to auscultation. There is no respiratory distress noted. HEART/CARDIOVASCULAR: Regular. There is no tachycardia. There is no murmur. ABDOMEN: Abdomen is soft, nontender. Patient has normal bowel sounds. There is no abdominal distention. SKIN: Skin is warm and dry. NEURO: The patient is awake, alert, and oriented. The patient is cooperative. The patient has no focal neurologic deficits. The patient has normal speech. MUSCULOSKELETAL: There is no tenderness or deformity. There is no limitation range of motion. There is no evidence of acute injury. ED Course Vital Signs 11/17/18 12:28 Temperature 98.2 F Pulse Rate 89 Respiratory 20 Rate Blood Pressure 143/80 [Right] O2 Sat by Pulse 100 Oximetry ED Medical Decision Making - Lab Data Result diagrams: 11/17/18 12:40 11/17/18 12:40 - Medical Decision Making This patient presents to the emergency department with a complaint of medication noncompliance of her psychiatric meds, and some emotional lability, depression, hallucinations, but denies any suicidal or homicidal ideations. The auditory hallucinations are nonspecific. The visual hallucinations involve seeing people who she thinks are trying to harm her. However she does not have any command hallucinations. The patient is awake, alert, oriented at AAO 3. She complained of a recent cough so a chest x-ray was done but there was no signs of any pneumonia, pleural effusions, pneumothorax, focal consolidation, or any other acute process. The patient's labs have been mostly unremarkable except for a urinary tract infection. Urine drug screen is positive for cocaine but she does not appear acutely intoxicated from this. The patient will be started on Macrobid. She was seen by the psychiatric car cleaning supervisor, Daily, we did a full evaluation and does not feel that the patient requires involuntary psychiatric admission or to be made a 1013. The patient says that she follows up with the [facility] and the patient has been instructed to follow up there on Tuesday. In the meantime, the patient will return to the ER with any worsening of her symptoms, thoughts of harming herself or others, or any acute distress. - Differential Diagnosis bipolar disorder, schizophrenia, substance abuse, depression Critical Care Time: No Critical care attestation.: If time is entered above; I have spent that time in minutes in the direct care of this critically ill patient, excluding procedure time. ED Disposition Clinical Impression: History of schizophrenia, History of bipolar disorder, Noncompliance with medication regimen UTI (urinary tract infection) Qualifiers: Urinary tract infection type: acute cystitis Hematuria presence: with hematuria Qualified Code(s): N30.01 - Acute cystitis with hematuria Disposition: TO HOME OR SELFCARE Is pt being admited?: No Condition: Stable Instructions: Urinary Tract Infection in Women (ED), Bipolar Disorder (ED), Schizophrenia (ED) Additional Instructions: Please follow up with your psychiatrist at the [facility] at [place]. I've also given you a referral for [facility]. Take the antibiotics as prescribed for your urinary tract infection. Return to the emergency Department with any worsening of your symptoms or any acute distress. Prescriptions: Nitrofurantoin [place]/M-Cryst [Macrobid CAP] 100 mg PO Q12HR #14 capsule Referrals: ZOE PARIS MD [Primary Care Provider] - 3-5 Days [facility] [Outside] - 3[facility] Days [facility] - 3-5 Days Time of Disposition: 16:13
[2018-11-17 13:56] LABS: HCG Qualitative,Urine Negative (Negative)
[2018-11-17 13:58] LABS: Bilirubin,Urine NEG (Negative); Blood,Urine LG (Negative); Color,Urine Yellow (Yellow); Mucus,Urine 2+ /HPF
[2018-11-17 13:59] LABS: RBC,Urine > 182.0 /HPF (0.0-6.0)
[2018-11-17 14:07] LABS: Amphetamine Screen,Urine PRESUMPTIVE NEGATIVE; Benzodiazepines Screen,Urine PRESUMPTIVE NEGATIVE; Cannabinoid Screen,Urine PRESUMPTIVE NEGATIVE; Methadone Screen,Urine PRESUMPTIVE NEGATIVE; Opiate Screen,Urine PRESUMPTIVE NEGATIVE
[2018-11-17 14:21] LABS: Cocaine Screen,Urine PRESUMPTIVE POSITIVE
[2018-11-17] MEDS ORDERED: MACROBID PO ONE (14:51)
[2018-11-17] MEDS ORDERED: TYLENOL PO ONE (14:55)
[2018-11-17] MEDS ORDERED: TYLENOL ONE (14:55)
--- NOTE | 2018-11-17 15:03 | XRay Report ---
ROUTINE CHEST, TWO VIEWS: HISTORY: Cough. The trachea, heart, mediastinal contour, lung velazco and bony thorax are unremarkable. IMPRESSION: Unremarkable chest x-ray.
== END 2018-11-17 16:24 | disposition home or self-care (01) ==
LOC: ED 12:20
DX: N39.0 Urinary tract infection, site not specified (principal); F31.9 Bipolar disorder, unspecified; F20.9 Schizophrenia, unspecified; Z91.14 Patient's other noncompliance with medication regimen; J45.909 Unspecified asthma, uncomplicated; E05.90 Thyrotoxicosis, unspecified without thyrotoxic crisis or storm; F17.200 Nicotine dependence, unspecified, uncomplicated; Z98.51 Tubal ligation status
CPT/HCPCS: 36415; 71046; 80053; 80307; 81001; 81025; 84443; 85025; 87086; 99284; G0480; 80320

== ENCOUNTER 2019-05-07 19:15 | Emergency (ER) | payer SELFPAY ==
[2019-05-07 19:38] VITALS: BP 117/66
== END 2019-05-07 21:35 | disposition left against medical advice (07) ==
LOC: ED 19:15
DX: R07.89 Other chest pain (principal); Z53.21 Procedure and treatment not carried out due to patient leaving prior to being seen by health care provider